=== PATIENT | female | born 1945 | race Caucasian/White ===

== ENCOUNTER → 2019-10-01 | Outpatient (CLI) | payer OTHER ==
[~2019-10-01] MED LIST: AMOCLA875 PO; Aspirin EC81 MG; CLAR500CR; CLOB.05TO; GUAPHELA
== END | disposition home or self-care (01) ==
LOC: LAB SHORT 08:33 → PLD 08:33
DX: D22.5 Melanocytic nevi of trunk (principal)
CPT/HCPCS: 88305

== ENCOUNTER 2019-12-25 08:50 | Day surgery (SDC) | payer OTHER ==
[~2019-12-25] VITALS: Ht 154.9 cm; Wt 61.2 kg
[2019-12-25] MEDS ORDERED: MOVE FREE JOIN1 EACH PO (10:25)
[2019-12-25] MEDS ORDERED: CALCIUM 1,0001 EACH PO (10:25)
[2019-12-25] MEDS ORDERED: Daily Multivit1 EAC2 PO (10:25)
--- NOTE | 2019-12-25 12:51 | NUR ---
12/25/19 1251 Blank Thomas 1209 PT ARRIVE FROM PAR. ASSISTED TO CHAIR WITH MIN. ASSIST.L LEG ELEVATED WITH PILLOWS AND ICE BEHIND KNEE. VSS. DENIES PAIN/N/V. SNACKS AND DRINKS PROVIDED. 1225 CONTINUES TO DENY PAIN/N/V. DISCHARGE INSTRUCTIONS GIVEN TO PT. AND DAUGHTER CHING. BOTH STATE UNDERSTAND. DISCHARGED HOME WIHT ALL BELONGINGS VIA .
== END 2019-12-25 12:42 | disposition home or self-care (01) ==
LOC: ORSCSDS 08:50
PROVIDERS: Podiatrist Foot & Ankle Surgery
PROC: 0SGN04Z Fusion of Left Metatarsal-Phalangeal Joint with Internal Fixation Device, Open Approach (ICD-10-PCS; principal; 2019-12-25 10:45)
DX: M20.12 Hallux valgus (acquired), left foot (principal); M20.22 Hallux rigidus, left foot
CPT/HCPCS: C1713; C1769; J0171; J0690; J1100; J1885; J2250; J2405; J2704; J3010; J7120

== ENCOUNTER 2020-03-25 09:31 | Day surgery (SDC) | payer OTHER ==
[~2020-03-25] VITALS: Ht 154.9 cm; Wt 60.6 kg
[~2020-03-25 09:31] MED LIST changes: +CALCIUM 1,0001 EACH PO; +Daily Multivit1 EAC2 PO; +MOVE FREE JOIN1 EACH PO
[2020-03-25] MEDS ORDERED: EMU-LAC HYDRAT120 ML TOP (10:03)
== END 2020-03-25 13:32 | disposition home or self-care (01) ==
LOC: ORSCSDS 09:31
PROVIDERS: Podiatrist Foot & Ankle Surgery
PROC: 0SGM04Z Fusion of Right Metatarsal-Phalangeal Joint with Internal Fixation Device, Open Approach (ICD-10-PCS; principal; 2020-03-25 10:45)
DX: M20.21 Hallux rigidus, right foot (principal); Z85.820 Personal history of malignant melanoma of skin; E78.5 Hyperlipidemia, unspecified
CPT/HCPCS: C1713; C1769; J0171; J0690; J1100; J2405; J2704; J3010; J7120

== ENCOUNTER 2020-10-07 10:24 | Day surgery (SDC) | payer OTHER ==
[~2020-10-07] VITALS: Ht 154.9 cm; Wt 58.1 kg
[~2020-10-07 10:24] MED LIST changes: +EMU-LAC HYDRAT120 ML TOP; +ROXICODONE5 MG PO
--- NOTE | 2020-10-07 11:51 | NUR ---
10/07/20 1151 Joanna Gonzalez V PT RESTING COMFORTABLY IN BED, WARM BLANKETS GIVEN FOR COMFORT. PT DENIES PAIN AND DISCOMFORT.
--- NOTE | 2020-10-07 14:37 | NUR ---
10/07/20 1437 Luzmaria Ley TRANEXAMIC ACID STARTEDD AT 1304
--- NOTE | 2020-10-07 16:52 | NUR ---
10/07/20 165 Etta Rizvi 165 TRANEXAMIC ACID STARTED ORDERED.
--- NOTE | 2020-10-07 17:54 | NUR ---
10/07/201753 Etta Rizvi LATE ENTRY 1735 PT STATES PAIN IS TOLERABLE. ASKES ABOUT THE SHAKINESS, I EXPLAINED THAT ANESTHESIA CAN CAUSE THAT AND IT SHOULD RESOLVE SOON.
== END 2020-10-07 17:54 | disposition home or self-care (01) ==
LOC: ORSCSDS 10:24
PROVIDERS: Podiatrist Foot & Ankle Surgery
PROC: 0QSK04Z Reposition Left Fibula with Internal Fixation Device, Open Approach (ICD-10-PCS; principal; 2020-10-07 11:45)
PROC: 0SGG04Z Fusion of Left Ankle Joint with Internal Fixation Device, Open Approach (ICD-10-PCS; principal; 2020-10-07 11:45)
PROC: 0SPG04Z Removal of Internal Fixation Device from Left Ankle Joint, Open Approach (ICD-10-PCS; principal; 2020-10-07 11:45)
DX: S82.62XA Displaced fracture of lateral malleolus of left fibula, initial encounter for closed fracture (principal); S82.392A Other fracture of lower end of left tibia, initial encounter for closed fracture; Z47.2 Encounter for removal of internal fixation device
CPT/HCPCS: A9270; C1713; J0171; J0690; J0735; J1100; J1885; J2250; J2370; J2405; J2704; J2710; J2795; J3010

== ENCOUNTER → 2021-04-04 | Outpatient (CLI) | payer OTHER | END | disposition home or self-care (01) | LOC: LAB SHORT 10:46 → LAB 10:46 | DX: D22.71 Melanocytic nevi of right lower limb, including hip (principal) | CPT/HCPCS: 88305 ==

== ENCOUNTER → 2024-10-06 | Outpatient (CLI) | payer OTHER ==
[2024-10-06 20:18] LABS: Anion Gap 9 mmol/L (3-11); Blood Urea Nitrogen 25 mg/dL (8-24); CHOL/HDL RATIO 3.4; CO2, Blood 28 mmol/L (21-32); Chloride, Blood 107 mmol/L (98-108); Cholesterol 220 mg/dL (50-200); Glucose, Blood 117 mg/dL (70-99); HDL Cholesterol 65 mg/dL (>39); LDL/HDL RATIO 1.8; Low Density Lipoprotein Chol 118 mg/dL (0-110); Potassium, Blood 4.1 mmol/L (3.5-5.5); Sodium, Blood 140 mmol/L (136-145); Triglycerides 185 mg/dL (30-160); Very Low Density Lipoprot Chol 37 mg/dL (6-32)
[2024-10-06 20:24] LABS: Creatinine, Blood 1.04 mg/dL (0.40-1.00); Glomerular Filtration Rate 55 (60-)
== END ==
LOC: LAB SHORT 09:30 → LAB 09:30
PROVIDERS: Hospitalist
DX: I12.9 Hypertensive chronic kidney disease with stage 1 through stage 4 chronic kidney disease, or unspecified chronic kidney disease (principal); N18.31 Chronic kidney disease, stage 3a
CPT/HCPCS: 80048; 80061; 83970

== ENCOUNTER → 2025-10-07 | Outpatient (CLI) | payer OTHER ==
[2025-10-07 15:00] LABS: Anion Gap 8 mmol/L (3-11); Blood Urea Nitrogen 19 mg/dL (8-24); CHOL/HDL RATIO 3.4; CO2, Blood 29 mmol/L (21-32); Calcium, Blood 9.0 mg/dL (8.5-10.1); Chloride, Blood 108 mmol/L (98-108); Cholesterol 208 mg/dL (50-200); Creatinine, Blood 1.01 mg/dL (0.40-1.00); Glucose, Blood 100 mg/dL (70-99); HDL Cholesterol 61 mg/dL (>39); LDL/HDL RATIO 2.0; Low Density Lipoprotein Chol 119 mg/dL (0-110); Potassium, Blood 4.1 mmol/L (3.5-5.5); Sodium, Blood 141 mmol/L (136-145); Triglycerides 139 mg/dL (30-160); Very Low Density Lipoprot Chol 27 mg/dL (6-32)
== END ==
LOC: LAB SHORT 13:28 → LAB 13:28
PROVIDERS: Hospitalist
DX: I12.9 Hypertensive chronic kidney disease with stage 1 through stage 4 chronic kidney disease, or unspecified chronic kidney disease (principal)
CPT/HCPCS: 80048; 80061